=== PATIENT | male | born 1985 | race Caucasian/White ===

== ENCOUNTER 2024-11-08 09:16 | Outpatient (CLI) | payer BC, OTHER, SELFPAY ==
--- NOTE | ~2024-11-08 | XR_ITS ---
EXAMINATION: XR sacrum coccyx min 2V DATE: 11/08/2024 10:03 INDICATION: Sacrococcygeal disorders, not elsewhere classified. TECHNIQUE: 3 views of the sacrum and coccyx were obtained. COMPARISON: MRI 11/08/2024 FINDINGS: Alignment is normal. No fracture. There is mild lumbar spondylosis. There is mild osteoarth ritis of the hips. The sacroiliac joints are normal. IMPRESSION: 1. No fracture. Reviewed, dictated and finalized at location A. K TRADER IMPRESSION: 1. No fracture.
--- NOTE | ~2024-11-08 | MR_ITS ---
EXAMINATION: MRI SACRUM W/O CONTRAST DATE: 11/08/2024 09:48 INDICATION: Sacrococcygeal disorder TECHNIQUE: Magnetic resonance imaging (MRI) of the sacrum and coccyx was performed without intravenou s contrast. Sequences included sagittal PD-weighted FSE; oblique axial T1-weighted FSE and T2-weight ed FS FSE; oblique coronal T2-weighted FSE, T1-weighted FSE and T2-weighted FS FSE. COMPARISON: None. FINDINGS: There is a transitional lumbosacral segment for purposes of this report designated as L5 which is sac ralized on the right and lumbarized on the left. Mild disc bulge with annular fissure at L4-L5. No fr acture. Mild dextrocurvature of the inferior sacrum with rightward angulation of the tip of the coccy x. There is disc centered nonspecific mild marrow edema without loss of T1 marrow signal in the to di stal most coccygeal segments. Normal marrow signal in the posterior inferiorly directed tip of the di stal most coccygeal segment. Marrow signal is otherwise normal throughout. No fracture or cortical er osion. Bilateral sacroiliac joint spaces and visualized posterior portions of the hip joint spaces ar e normal. There is mild edema in the soft tissues along the posterior margin of the coccyx and distal most sacrum. No abnormal masses or fluid collections identified. IMPRESSION: 1. Disc centered marrow edema involving the distalmost coccygeal segments with mild edema in the fat posterior to the coccyx and distal sacrum but without evident fracture, osteomyelitis or abnormal mas ses or fluid collections. Reviewed, dictated and finalized at location A. BODY INSPECTOR IMPRESSION: 1. Disc centered marrow edema involving the distalmost coccygeal segments with mild edema in the fat posterior to the coccyx and distal sacrum but without rishi dent fracture, osteomyelitis or abnormal masses or fluid collections.
== END 2024-11-08 09:17 | disposition home or self-care (01) ==
LOC: GOSHIMG 09:17
PROVIDERS: PCP Family Medicine; Visit Provider Family Medicine
DX: M53.3 Sacrococcygeal disorders, not elsewhere classified (principal)
CPT/HCPCS: 72195; 72220

== ENCOUNTER 2024-11-08 10:17 | Outpatient (CLI) | payer BC, OTHER, SELFPAY ==
--- OUTSIDE RECORDS SUMMARY | 2024-11-08 11:05 | XMS_ITS | Data Portability ---
Author Organization [facility], Main Office Address [address] [place] [address] Assessment No assessment recorded. Plan of Treatment Reminders Order Date Submit Date Provider Last Modified By Organization Details Last Modified Time Details Appointments None recorded. Lab lipid panel, serum 2022 023 [email or web address] [facility], [address] [place] [address], [address], 3 08:34:03 CMP, serum or plasma 2022 023 [email or web address] [facility], [address] [place] [address], [address], 3 08:34:03 Referral None recorded. Procedures None recorded. Surgeries None recorded. Imaging XR, lumbosacral spine, 4 or more view 2022 023 [facility], [address] [place] [address], [place], [address], 3 12:52:32 Medication Orders None recorded. Patient TargetsNo targets recorded. Patient InstructionsNo instructions recorded. Reason for Referral None Reported. Results Created Date Observation Date Name Description Value Unit Range Abnormal Flag Note LastModifiedBy Organization Detail LastModifiedTime 12/07/19 23 XR, lumbo sacra l spine , 4 or more view [facility] [place] [address] [facility] [place] [address] [phone] Patien t Name: SARIKA GODINEZ Access ion #: [id number] Sex: M : 1984 7 3 Locati on: RA2 Attend ing Physic isabel: ELKHAT IB, RUNDA Orderi ng Physic isabel: ELKHAT IB, RUNDA Exam Date: 11:17 AM Exam Name: XR L SPINE 4V+ Admitt ing Diagno sis(es ): RADIOL OGY REPORT - FINAL EXAM: XR L SPINE 4V+ HISTOR Y: CHRONI C LBP COMPAR ESTUARDO: None. TECHNI QUE: AP, Obliqu e, open-m outh, latera l, and swimme r's views. FINDIN GS: Examin ation of the cervic al spine demons trates no eviden ce of a fractu re, malali gnment , prever tebral mass, or destru ctive proces s. The bilate ral neural forami na appear patent . No radiop aque foreig n body. Multil evel degene rative change s noted throug hout the lumbar spine. If clinic al sympto ms persis t, MRI examin ation could be consid ered. Page 1 of 2 [facility] Pati t Name: SARIKA GODINEZ Access ion #: [id number] Sex: M : 1984 7 3 Exam Date: 11:17 AM Exam Name: XR L SPINE 4V+ Admitt ing Diagno sis(es ): IMPRES ANTONINO: No acute proces s, see above. Create d and electr onical ly signed by: Vamshi gutierrez MD Signed Date: 11:49 AM (CT) Dictat ed by: Vamshi gutierrez MD DD: 11:49 AM (CT) DT: 11:49 AM (CT) Page [address] of [address] (Imaging) [address] [place], [address], 12/09/2022 09:41:02 12/07/19 23 12/06/2022 XR, lumbo sacra l spine , 4 or more view No observ ation record ed. [address] [facility] [address] [place] [address] , [place], [address], 12/09/2022 09:07:51 12/17/19 23 XR, lumbo sacra l spine , 4 or more view [facility] [address], [place] [address] [phone] [place] Name: SARIKA GODINEZ Access ion #: [id number] Sex: M : 1984 7 3 Locati on: RA2 Attend ing Physic isabel: ELKHAT IB, RUNDA Orderi ng Physic isabel: ELKHAT IB, RUNDA Exam Date: 11:17 AM Exam Name: XR L SPINE 4V+ Admitt ing Diagno sis(es ): RADIOL OGY REPORT - FINAL WITH ADDEND UM ADDEND UM: The iGoat ion system insert ed a cervic al spine negati ve for a lumbar spine. There are no acute findin gs, see below. Techni que: AP, bilate ral obliqu e, latera l and coned latera l view images of the lumbar spine are perfor med. Findin gs: Modera te multil evel degene rative change s noted throug hout the thorac olumba r spine withou t eviden ce of a fractu re, malali gnment , or destru ctive proces s. Impres antonino: Multil evel degene rative change s, no acute proces s. Create d and electr onical ly signed by: Page 1 of 3 [facility] [place] Name: SARIKA GODINEZ Access ion #: [id number] Sex: M : 1984 7 3 Exam Date: 11:17 AM Exam Name: XR L SPINE 4V+ Admitt ing Diagno sis(es ): Vamshi gutierrez MD Signed Date: 4:33 PM (CT) Dictat ed by: Vamshi gutierrez MD DD: 023 4:33 PM (CT) DT: 023 4:33 PM (CT) Report _ID: [id number] EXAM: XR L SPINE 4V+ HISTOR Y: CHRONI C LBP COMPAR ESTUARDO: None. TECHNI QUE: AP, Obliqu e, open-m outh, latera l, and swimme r's views. FINDIN GS: Examin ation of the cervic al spine demons trates no eviden ce of a fractu re, malali gnment , prever tebral mass, or destru ctive proces s. The bilate ral neural forami na appear patent . No radiop aque foreig n body. Multil evel degene rative change s noted throug hout the lumbar spine. If clinic al sympto ms lindais t, MRI examin ation could be consid ered. IMPRES ANTONINO: Page 2 of 3 [facility] Patien t Name: SARIKA GODINEZ Access ion #: [id number] Sex: M : 1984 7 3 Exam Date: 11:17 AM Exam Name: XR L SPINE 4V+ Admitt ing Diagno sis(es ): No acute proces s, see above. Create d and electr onical ly signed by: Vamshi gutierrez MD Signed Date: 11:49 AM (CT) Dictat ed by: Vamshi gutierrez MD DD: 11:49 AM (CT) DT: 11:49 AM (CT) Page 3 of [address] (Imaging) [address] [place], [address], 12/20/2022 08:49:45 Result Notes None recorded. Problems Name Problem SNOMED Code Status Onset Date Resolution Date Notes Provider Name and Address Organization Details Recorded Time Paresthesia of lower extremity 438683566 Active 2022 Lo Landa MD [address] [facility], [address], [place], [address] , [facility] 3 12:01:03 Chronic low back pain 506684951 Active 2022 Lo Landa MD [address] [facility], [facility] [address], [place], [address], [facility] 12:01:18 Problem Notes None recorded. Procedures Surgical History None recorded. Imaging Results Imaging Date Name Status LastModified by Organiz ation Details LastModified Time 12/06/2022 XR, lumbosacral spine, 4 or more view completed [address] (Imaging) [address] [place], [address], 12/09/2022 09:41:02 12/06/2022 XR, lumbosacral spine, 4 or more view completed [address] [facility] [address] [place] [address], [place], [address], 12/09/2022 09:07:51 12/16/2022 XR, lumbosacral spine, 4 or more view completed [address] (Imaging) [address] [place], [address], 12/20/2022 08:49:45 Procedure Notes None recorded. Medical Equipment None Reported. Medications Name Sig Start Date Stop Date Status Note LastModified by Organization Details LastModified Time benzonatate 200 mg capsule Take 1 capsule 3 times a day by oral route. active Not Available Not Available No t Available Medrol (Antwon) 4 mg tablets in a dose pack Use as directed. 12/06 completed Not Available Not Available Not Available Zithromax Z-Antwon 250 mg tablet TAKE 2 TABLETS (500 MG) BY ORAL ROUTE ONCE DAILY FOR 1 DAY THEN 1 TABLET (250 MG) BY ORAL ROUTE ONCE DAILY FOR 4 DAYS 12/06 completed Not Available Not Available Not Available Paxlovid 300 mg (150 mg x 2)-100 mg tablets in a dose pack USE DIRECTED TWICE A DAY FOR 5 DAYS 11/06 completed Not Available Not Available Not Available Vitals Date Recorded Body mass index (BMI) Body height Oxygen saturation Oxygen saturation in Arterial blood by Pulse oximetry Heart rate Body temperature Body weight Systolic blood pressure Diastolic blood pressure Provider Name and Address Organization Details Last Updated DateTime 3 28.8 kg/m2 185.42 cm 96 % 96 % 81 /min 96.8 [degF] 78579.1 4 g 150 mm[Hg] 84 mm[Hg] Not Available [facility] 3 10:41:51 Date Recorded Body height Body mass index (BMI) Body weight Body temperature Heart rate Oxygen saturation Oxygen saturation in Arterial blood by Pulse oximetry Systolic blood pressure Diastolic blood pressure Provider Name and Address Organization Details Last Updated DateTime 3 185.42 cm 29.8 kg/m2 775073. 88 g 97.9 [degF] 88 /min 97 % 97 % 140 mm[Hg] 90 mm[Hg] IMANI [place] [facility] [place] [employer] 3 11:15:52 Social History None recorded. Functional Status None recorded. Mental Status None recorded. Family History Relationship Description Onset Age of this Age Resolved Age Notes LastModified by Organization Details LastModified Time Father Diabetes mellitus [id number] Not available 11/27/2022 10:41:00 Father Carcinoma of prostate MIGRATION.384 [id number] Not available 11/27/2022 10:41:00 Father Heart disease [email or web address].018 [id number] Not available 11/27/2022 10:41:00 Mother Multiple sclerosis MIGRATION.549 [id number] Not available 11/27/2022 10:41:00 Paternal Uncle Carcinoma of prostate MIGRATION.937 [id number] Not available 11/27/2022 10:41:00 Paternal Uncle Carcinoma of prostate MIGRATION.312 [id number] Not available 11/27/2022 10:41:00 Paternal Uncle Carcinoma of prostate MIGRATION.930 [id number] Not available 11/27/2022 10:41:00 Paternal Uncle Carcinoma of prostate MIGRATION.509 [id number] Not available 11/28/2022 01:23:41 Paternal Uncle Carcinoma of prostate MIGRATION.536 [id number] Not available 11/28/2022 01:23:41 Paternal Uncle Carcinoma of prostate MIGRATION.218 [id number] Not available 11/28/2022 01:23:42 Paternal Grandfather Carcinoma of prostate MIGRATION.325 [id number] Not available 11/27/2022 10:41:01 Paternal Grandfather Parkinson's disease MIGRATION.[id number] [id number] Not available 11/27/2022 10:41:01 Paternal Grandmother Heart disease MIGRATION.727 [id number] Not available 11/27/2022 10:41:01 Medical History Condition Response BLINDNESS N RHEUMATIC FEVER N KIDNEY STONES N BLADDER PROBLEMS N MRSA N OTHER # 1 N POLIO N LUNG DISEASE/DISORDER N HISTORY OF DRUG ABUSE N RADIATION / CHEMOTHERAPY N COPD N Other # 2 N BLOOD DISEASES N SURGERY N EAR OR HEARING PROBLEMS N MUMPS N SHINGLES N FEMALE PROBLEMS / INFECTIONS N BOWEL PROBLEMS N DEPRESSION (INCLUDING POST ) N STROKE/TIA N THYROID DISEASE N ULCERS N BENIGN PROSTATIC HYPERPLASIA N MEASLES N CERVICALGIA N TB SKIN TEST N HYPOTENSION N MYOCARDIAL INFARCTION N PARAPELGIA N OBESITY N GERD/NAUSEA N ANEURYSM N URINARY/BLADDER/KIDNEY PROBLEMS N CORONARY ARTERY DISEASE (CAD) N MENIERE'S DISEASE N ADDICTION CONCERNS N ENDOMETRIOSIS N USE OF BLOOD THINNERS N SKIN PROBLEMS N EMPHYSEMA N GASTROINTESTINAL DISORDER N MUSCLE,JOINT OR BONE PROBLEMS N GASTROINTESTINAL BLEEDING N BLOOD CLOTS N ASTHMA N CATARACTS N ERECTILE DYSFUNCTION N GI PROBLEMS N CHF N Low Testosterone N NEUROPATHY N INFERTILITY N AIDS/HIV N FRACTURES N CHEMOTHERAPY / RADIATION N VISION/EYE PROBLEMS N LIVER DISEASE N MALE HYPOGONADISM N HYPERTENSION N TOURETTE'S N ANXIETY DISORDER N BLOOD TRANSFUSION N ANEMIA/BLOOD DISORDER N CHRONIC EAR INFECTIONS N BRONCHITIS N TUBERCULOSIS N GLAUCOMA N FOOT PROBLEM N DIVERTICULITIS N SLEEP APNEA N CHICKENPOX N ALLERGIES/HAYFEVER N INFECTIOUS DISEASE N PROSTATE N HEART ARRHYTHMIA N INSOMNIA N HIGH CHOLESTEROL / HYPERLIPIDEMIA N EYE PROBLEMS N HYPERTHYROIDISM N EATING DISORDER N EDEMA N CHRONIC PAIN SYNDROME N CONSTIPATION N CAROTID BLOCKAGE N BACK / NECK PROBLEMS N HAVE YOU BEEN HOSPITALIZED OR SEEN IN [facility] IN THE PAST YEAR ? N ATHEROSCLEROSIS N BREAST PROBLEMS N DIALYSIS N ECZEMA N FIBROMYALGIA N OSTEOPOROSIS N ARTHRITIS N NO SIGNIFICANT PAST MEDICAL HISTORY N APPENDICITIS N DIABETES, TYPE N BAD TEETH N HEARTBURN / REFLUX N ADD/ADHD N AUTISM SPECTRUM DISORDER (ASD) N HEPATITIS / LIVER DISEASE N PULMONARY DISEASE N GOUT N SLEEP DISORDER N ALZHEIMER'S DISEASE N PAIN N DEMENTIA N HERPES N SEIZURES/EPILEPSY N HEADACHES/MIGRAINES N VASCULAR DISEASE N PACEMAKER N DIZZINESS N HEART DISEASE/HEART PROBLEMS N KIDNEY DISEASE N SCARLET FEVER N MULTIPLE SCLEROSIS N DEVELOPMENTAL OR BEHAVIORAL DISORDERS N MENTAL DISORDER/ILLNESS N CANCER: SPECIFY N CARDIAC ARRHYTHMIA N PNEUMONIA N ATRIAL FIBRILLATION N Gall Stones N PULMONARY EMBOLISM N AUTOIMMUNE DISEASE N Past Encounters Encounter ID Performer Location Encounter Start Date Encounter Closed Date Diagnosis/Indication Diagnosis SNOMED-CT Code Diagnosis ICD10 Code Diagnosis Note [id number] [facility] [place] [address] [facility] [place] [address] 11/07/2022 00:00:00 11/07/2022 10:19:34 [id number] Lo Landa MD [facility] [place] [address] [facility] [address] [place] [address] 12/06/2022 11:11:47 12/06/2022 12:09:05 Adult health examination 551073454 Z00.00 Paresthesi a of lower extremity 545700043 R20.2 Chronic low back pain 27 0540101 M54.50 Health Concerns Section Related Observation LastModified by Organization Detai ls LastModified Time None Recorded Concern Status LastModified by Organization Details LastModified Time None Recorded Advance Directives Directive None Recorded Payers Encounter Date Sequence Insurance Name Policy Number Policy Jose Covered Member ID Jose Member ID Guarantor Name 12/06/2022 1 [facility] [id number] 1 Jacinda Vaca [id number] Sarika Vaca Notes Date Note Type Note Provider Name and Address Organization Details Recorded Time 12/06/2022 text/html Here for a wellness visit. From right thigh to knee gets numbness not much pain. It tingles . Has issues with back. Usually has gone to chiropractor but not much help.Needs BW done. Lo Landa MD [address] [place] [address] [address] [place] [address], [place], [address], [facility] [employer] 12/06/2022 16:11:24
--- OUTSIDE RECORDS SUMMARY | 2024-11-08 11:05 | XMS_ITS | Clinical Summary ---
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 Family history of type 2 diabetes mellitus in fa ther 07/14/2020 Hypoglycemia, unspecified 07/14/2020 Elevated blood pressure read ing in office without diagnosis of hypertension 07/14/2020 Chronic low back pain with r ight-sided sciatica, unspecified back pain laterality 07/14/2020 Family history of prostate cancer in father 06/29 Immunizations Name Administration Dates Next Due Td (Teniva) preservative free 1985 Family History Medical History Relation Comments Heart Disease Father Prostate Cancer Father Diabetes Maternal Grandfather Diabetes Mother Heart Disease Paternal Grandmother Relation Status Comments Father Alive Maternal Grandfather Alive Mother Alive Paternal Grandmother Alive Social History Tobacco Use Types Packs/Day Years Used Date Smoking Tobacco: Never Smokeless Tobacco: Never Tobacco Cessation:Counseling Given: Yes Alcohol Use Standard Drinks/Week Comments Yes 0 (1 standard drink = 0.6 oz pur e alcohol) rarely Sex and Gender Information Value Date Recorded Sex Assigned at Not on file Legal Sex Male 7:57 PM CDT Gender Identity Not on file Sexual Orientation Not on file Last Filed Vital Signs Vital Sign Reading Time Taken Comments Blood Pressure 122/70 11/15/2020 10:48 AM RESIDENTIAL YOUTH COUNSELOR Pulse 96 11/15/2020 10:48 AM RESIDENTIAL YOUTH COUNSELOR Temperature 37.4 C (99.4 F) 11/15/2020 10:48 AM RESIDENTIAL YOUTH COUNSELOR Respiratory Rate 16 11/15/2020 10:48 AM RESIDENTIAL YOUTH COUNSELOR Oxygen Saturation 97% 11/15/2020 10:48 AM RESIDENTIAL YOUTH COUNSELOR Inhaled Oxygen Concentration - - Weight 94.3 kg (208 lb) 11/15/2020 10:48 AM RESIDENTIAL YOUTH COUNSELOR Height 182.9 cm (6') 10/12/2020 9:33 AM RESIDENTIAL YOUTH COUNSELOR Body Mass Index 28.21 10/12/2020 9:33 AM RESIDENTIAL YOUTH COUNSELOR Plan of Treatment Health Maintenance Due Date Last Done Comments Annual Physical 1988 Hepatitis C 2003 DTaP, Tdap and Td Vaccines (1 - Tdap) 2004 05/12/1991, 07/04/1987, 04/28/1986, Additional history exists Hepatitis B Vaccines (1 of 3 - 19+ 3-dose series) 2004 COVID-19 Vaccine ( - 2023- season) 2024 Influenza Adult (#1) 2024 HPV Vaccines Aged Out No longer eligi ble based on patient's age to complete this topic Meningococcal B Vaccine Aged Out No l onger eligible based on patient's age to complete this topic Meningococcal Vaccine Aged Out No fatmata mendoza eligible based on patient's age to complete this topic Pneumococcal Vaccine: Pediatrics (0 to 5 Years) and At-Risk Patients (6 to 64 Years) Aged Out No longer eligible based on patient's age to complete this topic RSV Immunizations Under 20 Months Aged Out No longer eligible based on patient's age to complete this topic Insurance Care Teams Director Plans Relationship Specialty Start Date End Date Mei Diallo V, [facility]- [address] [place] [address] [place] [address] PCP - General Nurse Practitioner Family 07/11/20
[2024-11-08 12:58] LABS: Hemoglobin 15.5 g/dL (14.0-18.0); Mean Corpuscular HGB Conc 34.4 g/dl (32-36); Mean Corpuscular Hemoglobin 28.7 pg (26-34); Mean Corpuscular Volume 83.3 fl (80-100); Mean Platelet Volume 10.2 fl (7.4-10.4); Platelet Count Result 217 k/mm3 (150-375); Red Cell Distribution Width 12.7 % (11.5-14.5); White Blood Count 8.2 K/mm3 (4.5-10.0)
[2024-11-08 15:31] LABS: Alanine Aminotransferase 69 U/L (6-50); Albumin Level 4.4 g/dL (3.5-5.1); Alkaline Phosphatase 87 U/L (38-126); Anion Gap 12 mmol/L (4-12); Aspartate Amino Transferase 53 U/L (17-59); Bilirubin,Total 0.7 mg/dL (0.2-1.3); Blood Urea Nitrogen 17 mg/dL (9-20); Calcium 9.5 mg/dL (8.4-10.2); Carbon Dioxide 26 mmol/L (22-30); Chloride 102 mmol/L (98-107); Cholesterol 150 mg/dL (0-200); Estimated Glomerular Filt Rate > 60; Glucose 99 mg/dL (65-110); HDL Direct 39 mg/dL; Potassium 4.5 mmol/L (3.4-5.0); Sodium 140 mmol/L (137-145); Triglycerides 153 mg/dL (<150)
[2024-11-08 15:42] LABS: LDL Cholesterol Direct 77 mg/dL
== END 2024-11-08 10:18 | disposition home or self-care (01) ==
LOC: ANHGOSHLAB 10:18
PROVIDERS: PCP Family Medicine; Visit Provider Family Medicine
DX: R68.82 Decreased libido (principal); E66.9 Obesity, unspecified; Z79.899 Other long term (current) drug therapy
CPT/HCPCS: 36415; 80053; 80061; 84402; 84403; 84443; 85027

== ENCOUNTER 2025-02-10 09:20 | Outpatient (CLI) | payer BC, OTHER, SELFPAY ==
--- NOTE | ~2025-02-10 | XR_ITS ---
Left ankle Technique: AP, oblique, and lateral views were obtained. Clinical History: Pain Findings: No acute fracture or dislocation is seen. Osseous alignment is anatomic. Ankle mortise and other visualized joint spaces are preserved. Mild lateral soft tissue swelling noted. Impression: No fracture or dislocation. Lateral soft tissue swelling. Reviewed, dictated and finalized at [facility]. Impression: No fracture or dislocation. Lateral soft tissue swelling.
== END 2025-02-10 09:21 | disposition home or self-care (01) ==
LOC: GOSHIMG 09:20
PROVIDERS: PCP Family Medicine; Visit Provider Family Medicine
DX: M25.472 Effusion, left ankle (principal); M25.572 Pain in left ankle and joints of left foot
CPT/HCPCS: 73610

== ENCOUNTER 2025-02-17 10:22 | Outpatient (CLI) | payer OTHER, SELFPAY ==
--- NOTE | ~2025-02-17 | MR_ITS ---
MRI of the left ankle Clinical history: Injury, swelling Technique: Coronal proton-density and proton-density fat-sat images, axial proton-density and proton- density fat-sat images, and sagittal proton-density and proton-density fat-sat images were acquired. Findings: Syndesmotic ligaments are intact. There is acute tear of the anterior talofibular, which ap pears to be ruptured from its talar insertion, with thickening and hyperintense signal, as well as fl uid-filled defect. Suspected associated tear of the calcaneofibular ligament as well. Posterior talof ibular ligament is intact. Deltoid ligament is intact. Medial flexor tendons, peroneal tendons, anterior extensor tendons, and Achilles tendon are intact. There is no osteochondral lesion of the talar dome. There is focal marrow edema at the medial aspect of the talar neck, consistent with bone contusion from direct impaction injury with possible focal co rtical impaction injury/irregularity, but no adam fracture evident. Ftyfa-qh-qsnnfuod. No joint effusion present. Small subtalar joint effusion present. Remaining joint spaces are intact otherwise. Plantar fascia intact. No soft tissue mass evident. There is extensive subcutaneous soft tissue edema , especially over the lateral aspect of the ankle, with possible 1.9 x 0.7 cm fluid collection presen t (series 3 image 23). Impression: Acute probable complete tears of the anterior talofibular and calcaneofibular ligaments, with extensi ve overlying lateral soft tissue swelling/edema. Probable direct impaction injury with focal cortical irregularity at the medial aspect of the talar n ruben, as detailed above. Reviewed, dictated and finalized at [facility]. Impression: Acute probable complete tears of the anterior talofibular and calcaneofibular l igaments, with extensive overlying lateral soft tissue swelling/edema. Probable direct impaction injury with focal cortical irregularity at the medial aspect of the talar neck, as detailed above.
== END 2025-02-17 10:23 | disposition home or self-care (01) ==
LOC: GOSHIMG 10:22
PROVIDERS: PCP Family Medicine; Visit Provider Family Medicine
DX: M25.572 Pain in left ankle and joints of left foot (principal); M25.472 Effusion, left ankle
CPT/HCPCS: 73721